=== PATIENT | male | born 1970 | race African-American/Black ===

== ENCOUNTER 2022-01-28 05:02 | Emergency (ER) | payer MEDICAID ==
[~2022-01-28] VITALS: Ht 177.8 cm; Wt 81.6 kg
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
--- NOTE | 2022-01-28 05:25 | NUR ---
PT RETURNED TO ER BED [address]
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
--- NOTE | 2022-01-28 08:00 | NUR ---
Asleep- Respirations even and UNlabored. No obvious distress
--- NOTE | 2022-01-28 10:12 | NUR ---
Vss. Status quo, NO acute changes/distress. Vitals to Routine
--- NOTE | 2022-01-28 12:19 | NUR ---
PT ASLEEP, WILL OPEN EYES & GOES BACK TO SLEEP. VSS. RR EVEN & UNLABORED. WILL CONT TO MONITOR.
[2022-01-28 14:11] VITALS: BP 142/82
--- NOTE | 2022-01-28 14:11 | NUR ---
Patient discharged to home in stable condition. Written and verbal after care instructions given. Patient verbalizes understanding of instruction.
== END 2022-01-28 14:12 | disposition home or self-care (01) ==
LOC: EDBD 05:13 → ER 05:13
DX: F10.129 Alcohol abuse with intoxication, unspecified (principal); Z59.00 Homelessness unspecified; Y90.9 Presence of alcohol in blood, level not specified
CPT/HCPCS: 70450-TC